=== PATIENT | female | born 1985 | race Caucasian/White ===

== ENCOUNTER 2019-06-25 12:43 | Emergency (ER) | payer BC ==
[2019-06-25 14:17] LABS: Urine Amorphous Sediment 1+ /HPF (NONE SEEN); Urine Bacteria <20 /HPF (<20); Urine Mucus 1+ /HPF (NONE SEEN); Urine RBC <5 /HPF (NONE SEEN)
[2019-06-25 14:18] LABS: Urine Specific Gravity >1.030 (1.005-1.030)
[2019-06-25 14:18] LABS: Urine Blood NEGATIVE (NEG); Urine Glucose NEGATIVE (NEG); Urine Protein NEGATIVE (NEG); Urine Specific Gravity >1.030 (1.005-1.030)
[2019-06-25 14:20] LABS: Urine Culture Reflex Order NOT NEEDED
--- NOTE | 2019-06-25 14:51 | EDPHYS ---
Physician Documentation [facility] Name: Ruby Ellis Age: 33 yrs Sex: Female : 1985 Arrival Date: 06/25/2019 Time: 12:46 Bed 24 Private MD: ED Physician Jatin Ceballos HPI: 06/24 14:47 This 33 yrs old Female presents to ER via Ambulatory with complaints of UTI. jr8 14:47 The patient presents with urinary symptoms, dysuria, frequency. Onset: The jr8 symptoms/episode began/occurred gradually, 1 week(s) ago. Modifying factors: The symptoms are alleviated by nothing, the symptoms are aggravated by nothing. Associated signs and symptoms: Pertinent positives: fever, low back pain. Severity of symptoms: At their worst the symptoms were moderate, in the emergency department the symptoms have improved, mildly. The patient has experienced similar episodes in the past, multiple times. The patient has not recently seen a physician. Patient stated that she has history of interstitial cystitis and UTIs. Stated that she has been on one week of cipro but usually requires two. Has taken first weeks worth from old supply and feeling better but knows she still has infection. Denies any other symptoms . 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 - Social history:: Smoking status: Patient denies any tobacco usage or history of. ROS: 14:47 Eyes: Negative for injury, pain, redness, and discharge, ENT: Negative for injury, jr8 pain, and discharge, Neck: Negative for injury, pain, and swelling, Cardiovascular: Negative for chest pain, palpitations, and edema, Respiratory: Negative for shortness of breath, cough, wheezing, and pleuritic chest pain, Abdomen/GI: Negative for abdominal pain, nausea, vomiting, diarrhea, and constipation, Back: Negative for injury and pain, MS/Extremity: Negative for injury and deformity, Skin: Negative for injury, rash, and discoloration, Neuro: Negative for headache, weakness, numbness, tingling, and seizure. 14:47 Constitutional: Positive for fever. 14:47 : Positive for urinary symptoms, burning with urination, Negative for vaginal bleeding, vaginal discharge, vaginal itching. Exam: 14:47 Eyes: Pupils equal round and reactive to light, extra-ocular motions intact. Lids and jr8 lashes normal. Conjunctiva and sclera are non-icteric and not injected. Cornea within normal limits. Periorbital areas with no swelling, redness, or edema. ENT: Nares patent. No nasal discharge, no septal abnormalities noted. Tympanic membranes are normal and external auditory canals are clear. Oropharynx with no redness, swelling, or masses, exudates, or evidence of obstruction, uvula midline. Mucous membranes moist. Neck: Trachea midline, no thyromegaly or masses palpated, and no cervical lymphadenopathy. Supple, full range of motion without nuchal rigidity, or vertebral point tenderness. No Meningismus. Cardiovascular: Regular rate and rhythm with a normal S1 and S2. No gallops, murmurs, or rubs. Normal PMI, no JVD. No pulse deficits. Respiratory: Lungs have equal breath sounds bilaterally, clear to auscultation and percussion. No rales, rhonchi or wheezes noted. No increased work of breathing, no retractions or nasal flaring. Abdomen/GI: Soft, non-tender, with normal bowel sounds. No distension or tympany. No guarding or rebound. No evidence of tenderness throughout. Back: No spinal tenderness. No costovertebral tenderness. Full range of motion. Skin: Warm, dry with normal turgor. Normal color with no rashes, no lesions, and no evidence of cellulitis. MS/ Extremity: Pulses equal, no cyanosis. Neurovascular intact. Full, normal range of motion. Neuro: Awake and alert, GCS 15, oriented to person, place, time, and situation. Cranial nerves II-XII grossly intact. Motor strength 5/5 in all extremities. Sensory grossly intact. Cerebellar exam normal. Normal gait. Vital Signs: 12:59 BP 120 / 68; Pulse 83; Resp 16; Temp 98.4; Pulse Ox 97% on R/A; Weight 91.85 kg; iw 14:28 BP 110 / 71; Pulse 81; Resp 18 S; Temp 98.1(O); Pulse Ox 100% on R/A; ca1 MDM: 14:07 Patient medically screened. jr8 14:47 Data reviewed: vital signs, nurses notes, lab test result(s), and as a result, I will jr8 discharge patient. Data interpreted: Pulse oximetry: on room air is 100 %. Interpretation: normal. Counseling: I had a detailed discussion with the patient and/or guardian regarding: the historical points, exam findings, and any diagnostic results supporting the discharge/admit diagnosis, lab results, the need for outpatient follow up, a family practitioner, a urologist, to return to the emergency department if symptoms worsen or persist or if there are any questions or concerns that arise at home. 06/24 13:18 Order name: Urine Culture iw 06/24 13:18 Order name: Urine Microscopic Only; Complete Time: 14:33 iw 06/24 13:22 Order name: Urine Dipstick--Ancillary (enter results); Complete Time: 14:33 em1 06/24 13:23 Order name: Urine --Ancillary (enter results); Complete Time: 14:33 em1 Administered Medications: No medications were administered Disposition: 06/25 01:25 Co-signature as Attending Physician, Jatin Ceballos MD I agree with the assessment and kdr plan of care. Disposition: 06/25/19 14:50 Discharged to Home. Impression: Urinary tract infection, site not specified. - Condition is Stable. - Discharge Instructions: Urinary Tract Infection, Adult. - Prescriptions for Cipro 500 mg Oral Tablet - take 1 tablet by ORAL route every 12 hours for 7 days; 14 tablet. - Medication Reconciliation Form, Thank You Letter, Antibiotic Education, Prescription Opioid Use form. - Follow up: Ruslan Charles MD; When: 1 week; Reason: Recheck today's complaints, Continuance of care, Re-evaluation by your physician. - Problem is new. - Symptoms are unchanged. Signatures: Dispatcher [employer] EDMS Jatin Ceballos MD MD kdr Williams, Irene, RN RN Allen Williamson PA PA jr8 Alondra Mary RN RN ca1 Corrections: (The following items were deleted from the chart) 06/24 15:00 14:50 06/25/2019 14:50 Discharged to Home. Impression: Urinary tract infection, site ca1 not specified. Condition is Stable. Forms are Medication Reconciliation Form, Thank You Letter, Antibiotic Education, Prescription Opioid Use. Follow up: Ruslan Charles; When: 1 week; Reason: Recheck today's complaints, Continuance of care, Re-evaluation by your physician. Problem is new. Symptoms are unchanged. jr8
--- NOTE | 2019-06-25 14:51 | ER ---
Nurse's Notes [facility] Name: Ruby Ellis Age: 33 yrs Sex: Female : 1985 Arrival Date: 06/25/2019 Time: 12:46 Bed 24 Private MD: Diagnosis: Urinary tract infection, site not specified Presentation: 06/24 12:59 Chief complaint: Patient states: bladder pain, sweating, subj fever X 1 week, has been iw on abx (Cipro) for UTI, states the abx was left over from a previous UTI. Coronavirus screen: Proceed with normal triage. Patient denies a cough. Patient denies shortness of breath or difficulty breathing. Patient denies measured and/or subjective temperature greater than 100.4F prior to today's visit. Patient denies travel on a cruise ship or to a country the [facility] currently lists as an affected area. Patient denies contact with known and/or suspected case of COVID-19. Ebola Screen: Patient negative for fever greater than or equal to 101.5 degrees Fahrenheit, and additional compatible Ebola Virus Disease symptoms Patient denies exposure to infectious person. Patient denies travel to an Ebola-affected area in the 21 days before illness onset. No symptoms or risks identified at this time. Initial Sepsis Screen: Does the patient meet any 2 criteria? No. Patient's initial sepsis screen is negative. Does the patient have a suspected source of infection? No. Patient's initial sepsis screen is negative. Risk Assessment: Do you want to hurt yourself or someone else? Patient reports no desire to harm self or others. Onset of symptoms was June 19, 2019. 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 - Social history:: Smoking status: Patient denies any tobacco usage or history of. Screenin:28 Abuse screen: Denies threats or abuse. Denies injuries from another. Nutritional ca1 screening: No deficits noted. Tuberculosis screening: No symptoms or risk factors identified. Fall Risk None identified. Assessment: 14:28 General: Appears in no apparent distress. comfortable, Behavior is calm, cooperative, ca1 appropriate for age. Pain: Complains of pain in suprapubic area Pain does not radiate. Pain began a week ago. Neuro: Level of Consciousness is awake, alert, obeys commands, Oriented to person, place, time, situation, Appropriate for age. Cardiovascular: Heart tones S1 S2 present Capillary refill < 3 seconds Patient's skin is warm and dry. Respiratory: Airway is patent Respiratory effort is even, unlabored, Respiratory pattern is regular, symmetrical, Breath sounds are clear bilaterally. GI: Abdomen is round non-distended, Bowel sounds present X 4 quads. Abd is soft X 4 quads Abdomen is tender to palpation in suprapubic area Reports nausea, vomiting. : Reports burning with urination, urgency, urinary frequency. EENT: No signs and/or symptoms were reported regarding the EENT system. Derm: Skin is intact, is healthy with good turgor, Skin is pink, warm \T\ dry. Musculoskeletal: Circulation, motion, and sensation intact. Capillary refill < 3 seconds. 14:59 Reassessment: Patient appears in no apparent distress at this time. Patient is alert, ca1 oriented x 3, equal unlabored respirations, skin warm/dry/pink. Vital Signs: 12:59 BP 120 / 68; Pulse 83; Resp 16; Temp 98.4; Pulse Ox 97% on R/A; Weight 91.85 kg; iw 14:28 BP 110 / 71; Pulse 81; Resp 18 S; Temp 98.1(O); Pulse Ox 100% on R/A; ca1 ED Course: 12:46 Patient arrived in ED. ag5 13:02 Triage completed. iw 13:04 Arm band placed on. iw 14:07 Allen Williamson PA is PHCP. jr8 14:07 Jatin Ceballos MD is Attending Physician. jr8 14:11 Alondra Mary RN is Primary Nurse. ca1 14:28 Patient has correct armband on for positive identification. Bed in low position. Call ca1 light in reach. Side rails up X 1. Pulse ox on. NIBP on. Warm blanket given. 14:50 Ruslan Charles MD is Referral Physician. jr8 14:59 No provider procedures requiring assistance completed. Patient did not have IV access ca1 during this emergency room visit. Administered Medications: No medications were administered Outcome: 14:50 Discharge ordered by . jr8 14: Discharged to home ambulatory. ca1 14:59 Condition: stable 14:59 Discharge instructions given to patient, Instructed on discharge instructions, follow up and referral plans. medication usage, Demonstrated understanding of instructions, follow-up care, medications, Prescriptions given X 1. 15:00 Patient left the ED. ca1 Signatures: Sudha Preciado RN RN Allen Lima PA PA 8 Alondra Mary RN RN ca1 Ede Mao 5
[2019-06-26 03:28] VITALS: BP 110/71; TEMP 98.1; O2SAT 100
== END 2019-06-25 15:00 | disposition home or self-care (01) ==
LOC: ER 12:43
DX: N39.0 Urinary tract infection, site not specified (principal); Z88.1 Allergy status to other antibiotic agents
CPT/HCPCS: 81003; 81015; 81025; 87086; 87088; 99283

== ENCOUNTER 2019-12-28 17:56 | Emergency (ER) | payer BC ==
[2019-12-28 19:07] LABS: Hematocrit 42.2 % (36.0-45.0); Lymphocytes % 23.3 % (15.3-44.8)
[2019-12-28 19:10] LABS: Urine Bacteria <20 /HPF (<20); Urine RBC <5 /HPF (NONE SEEN)
[2019-12-28 19:11] LABS: Urine Blood NEGATIVE (NEG); Urine Glucose NEGATIVE (NEG); Urine Protein NEGATIVE (NEG); Urine Specific Gravity 1.025 (1.005-1.030); Urine pH 6.5 (5.0-7.0)
[2019-12-28 19:11] LABS: Urine Culture Reflex Order NOT NEEDED; Urine Mucus 1+ /HPF (NONE SEEN)
[2019-12-28 19:32] LABS: Magnesium 2.5 mg/dL (1.8-2.4); Potassium 4.3 mmol/L (3.5-5.1); Protein, Total 7.1 g/dL (6.4-8.2)
--- NOTE | 2019-12-28 19:37 | EDPHYS ---
Physician Documentation [facility] Name: Ruby Ellis Age: 34 yrs Sex: Female : 1985 Arrival Date: 12/28/2019 Time: 17:58 Bed 16 Private MD: ED Physician Jatin Ceballos HPI: 12/27 19:24 This 34 yrs old Female presents to ER via Ambulatory with complaints of snw Urinary Problem, Feet Swelling. 19:24 The patient presents with urinary symptoms, frequency, urgency, swelling to hands and snw feet. Onset: The symptoms/episode began/occurred gradually, at an unknown time. Modifying factors: The symptoms are alleviated by nothing. Severity of symptoms: At their worst the symptoms were mild. The patient has experienced similar episodes in the past. The patient has not recently seen a physician. told she had interstitial cystitis. 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 - Social history:: Smoking status: Patient/guardian denies using tobacco, Stopped _ months ago 2. ROS: 19:24 Constitutional: Negative for fever, chills, and weight loss, Eyes: Negative for injury, snw pain, redness, and discharge, ENT: Negative for injury, pain, and discharge, Neck: Negative for injury, pain, and swelling, Cardiovascular: Negative for chest pain, palpitations, and edema, Respiratory: Negative for shortness of breath, cough, wheezing, and pleuritic chest pain, Abdomen/GI: Negative for abdominal pain, nausea, vomiting, diarrhea, and constipation, Back: Negative for injury and pain, Skin: Negative for injury, rash, and discoloration, Neuro: Negative for headache, weakness, numbness, tingling, and seizure. 19:24 : Positive for urinary symptoms. 19:24 MS/extremity: Positive for swelling, of the right hand, left hand, right foot and left foot. Exam: 19:23 Constitutional: This is a well developed, well nourished patient who is awake, alert, snw and in no acute distress. Head/Face: Normocephalic, atraumatic. Eyes: Pupils equal round and reactive to light, extra-ocular motions intact. Lids and lashes normal. Conjunctiva and sclera are non-icteric and not injected. Cornea within normal limits. Periorbital areas with no swelling, redness, or edema. ENT: Nares patent. No nasal discharge, no septal abnormalities noted. Tympanic membranes are normal and external auditory canals are clear. Oropharynx with no redness, swelling, or masses, exudates, or evidence of obstruction, uvula midline. Mucous membranes moist. Neck: Trachea midline, no thyromegaly or masses palpated, and no cervical lymphadenopathy. Supple, full range of motion without nuchal rigidity, or vertebral point tenderness. No Meningismus. Chest/axilla: Normal chest wall appearance and motion. Nontender with no deformity. No lesions are appreciated. Cardiovascular: Regular rate and rhythm with a normal S1 and S2. No gallops, murmurs, or rubs. Normal PMI, no JVD. No pulse deficits. Respiratory: Lungs have equal breath sounds bilaterally, clear to auscultation and percussion. No rales, rhonchi or wheezes noted. No increased work of breathing, no retractions or nasal flaring. Abdomen/GI: Soft, non-tender, with normal bowel sounds. No distension or tympany. No guarding or rebound. No evidence of tenderness throughout. Back: No spinal tenderness. No costovertebral tenderness. Full range of motion. Skin: Warm, dry with normal turgor. Normal color with no rashes, no lesions, and no evidence of cellulitis. Neuro: Awake and alert, GCS 15, oriented to person, place, time, and situation. Cranial nerves II-XII grossly intact. Motor strength 5/5 in all extremities. Sensory grossly intact. Cerebellar exam normal. Normal gait. Psych: Awake, alert, with orientation to person, place and time. Behavior, mood, and affect are within normal limits. 19:23 Musculoskeletal/extremity: Extremities: swelling to hands and feet, ROM: no acute changes, Circulation is intact in all extremities. Sensation intact. Vital Signs: 18:25 BP 105 / 63; Pulse 69; Resp 16 S; Temp 97.4(TE); Pulse Ox 99% on R/A; Height 5 ft. 4 ca1 in. (162.56 cm) (R); Pain 0/10; 18:29 Weight 83.19 kg (M); ca1 19:45 BP 105 / 74; Pulse 66; Resp 17; Pulse Ox 98% ; Pain 0/10; bb3 18:29 Body Mass Index 31.48 (83.19 kg, 162.56 cm) ca1 MDM: 19:11 Patient medically screened. snw 19:37 Data reviewed: vital signs, nurses notes. Data interpreted: Pulse oximetry: on room air snw is 99 %. Interpretation: normal. Counseling: I had a detailed discussion with the patient and/or guardian regarding: the historical points, exam findings, and any diagnostic results supporting the discharge/admit diagnosis, lab results, the need for outpatient follow up, for definitive care, to return to the emergency department if symptoms worsen or persist or if there are any questions or concerns that arise at home. Special discussion: Based on the history and exam findings, there is no indication for further emergent testing or inpatient evaluation. I discussed with the patient/guardian the need to see the primary care provider for further evaluation of the symptoms. 12/27 18:19 Order name: Urine Culture snw 12/27 18:19 Order name: Urine Microscopic Only; Complete Time: 19:18 snw 12/27 18:43 Order name: Urine For Protein, Random; Complete Time: 19:04 snw 12/27 18:44 Order name: CBC with Diff; Complete Time: 19:18 snw 12/27 18:44 Order name: Chem 7; Complete Time: 19:35 snw 12/27 18:44 Order name: Magnesium; Complete Time: 19:35 snw 12/27 18:19 Order name: Urine Test (obtain specimen); Complete Time: 18:36 snw 12/27 18:19 Order name: Chest Single View XRAY; Complete Time: 19:54 snw 12/27 18:44 Order name: Osmolality, Serum; Complete Time: 19:54 snw 12/27 18:48 Order name: Urine Dipstick--Ancillary (enter results); Complete Time: 19:18 bd 12/27 18:48 Order name: Urine --Ancillary (enter results); Complete Time: 19:18 bd 12/27 19:21 Order name: Add On-Lab sn 12/27 19:22 Order name: Protein, Total; Complete Time: 19:35 EDMA 12/27 18:19 Order name: Urine Dipstick-Ancillary (obtain specimen); Complete Time: 18:36 snw 12/27 18:52 Order name: IV Start; Complete Time: 19:03 tw2 Administered Medications: 19:44 Drug: Decadron - Dexamethasone 10 mg Route: IVP; Site: left antecubital; bb3 20:06 Follow up: Response: No adverse reaction jd3 Disposition: 12/28 06:57 Co-signature as Attending Physician, Jatin Ceballos MD I agree with the assessment and kdr plan of care. Disposition: 12/28/19 19:36 Discharged to Home. Impression: Proteinuria, unspecified. - Condition is Stable. - Discharge Instructions: Proteinuria, Rehydration, Adult. - Work release form, Medication Reconciliation Form, Thank You Letter, Antibiotic Education, Prescription Opioid Use form. - Follow up: Emergency Department; When: As needed; Reason: Worsening of condition. Follow up: Private Physician; When: 1 week; Reason: Recheck today's complaints, Continuance of care, Re-evaluation by your physician. Signatures: Dispatcher [employer] Jatin Cummings MD MD kdr Stephanie Tobar, PELT SALTER-C PELT SALTER-Csnw Marleny Pretty RN RN tw2 Devan Edmond RN RN jd3 Alondra Mary RN RN ca1 Lorna Jordan bb3 Corrections: (The following items were deleted from the chart) 12/27 18:28 18:23 Social history: Smoking status: Patient denies any tobacco usage or history of. ca1 ca1 20:06 19:36 12/28/2019 19:36 Discharged to Home. Impression: Proteinuria, unspecified. jd3 Condition is Stable. Forms are Medication Reconciliation Form, Thank You Letter, Antibiotic Education, Prescription Opioid Use. Follow up: Emergency Department; When: As needed; Reason: Worsening of condition. Follow up: Private Physician; When: 1 week; Reason: Recheck today's complaints, Continuance of care, Re-evaluation by your physician. snw
--- NOTE | 2019-12-28 19:37 | ER ---
Nurse's Notes [facility] Name: Ruby Ellis Age: 34 yrs Sex: Female : 1985 Arrival Date: 12/28/2019 Time: 17:58 Bed 16 Private MD: Diagnosis: Proteinuria, unspecified Presentation: 12/27 18:23 Chief complaint: Patient states: I was told I have interstitial cystitis. I can tell ca1 when I am having a UTI, this one started 2 days ago. Denies fever. I also have swelling on my feet and hands. Coronavirus screen: Client denies travel out of the [place] in the last 14 days. At this time, the client does not indicate any symptoms associated with coronavirus-19. Ebola Screen: Patient negative for fever greater than or equal to 101.5 degrees Fahrenheit, and additional compatible Ebola Virus Disease symptoms Patient denies exposure to infectious person. Patient denies travel to an Ebola-affected area in the 21 days before illness onset. No symptoms or risks identified at this time. Initial Sepsis Screen: Does the patient meet any 2 criteria? No. Patient's initial sepsis screen is negative. Does the patient have a suspected source of infection? No. Patient's initial sepsis screen is negative. Risk Assessment: Do you want to hurt yourself or someone else? Patient reports no desire to harm self or others. Onset of symptoms was December 28, 2019. 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 - Social history:: Smoking status: Patient/guardian denies using tobacco, Stopped _ months ago 2. Screenin:31 Abuse screen: Denies threats or abuse. Nutritional screening: No deficits noted. tw2 Tuberculosis screening: No symptoms or risk factors identified. Fall Risk None identified. Assessment: 18:30 General: Appears in no apparent distress. Behavior is calm, cooperative, appropriate tw2 for age. Pain:. Neuro: Level of Consciousness is awake, alert, obeys commands, Oriented to person, place, time, situation. Cardiovascular: Heart tones S1 S2 Patient's skin is warm and dry. Cardiovascular: Respiratory: Airway is patent Respiratory effort is even, unlabored, Respiratory pattern is regular, symmetrical, Breath sounds are clear bilaterally. GI: No signs and/or symptoms were reported involving the gastrointestinal system. Abdomen is round non-distended. : Reports burning with urination. EENT: No signs and/or symptoms were reported regarding the EENT system. Derm: No signs and/or symptoms reported regarding the dermatologic system. Derm: Reports increased "swelling in hands and feet". Musculoskeletal: Range of motion: intact in all extremities. 19:45 Reassessment: No changes from previously documented assessment. Patient and/or family bb3 updated on plan of care and expected duration. Pain level reassessed. Patient is alert, oriented x 3, equal unlabored respirations, skin warm/dry/pink. Patient denies pain at this time. Vital Signs: 18:25 BP 105 / 63; Pulse 69; Resp 16 S; Temp 97.4(TE); Pulse Ox 99% on R/A; Height 5 ft. 4 ca1 in. (162.56 cm) (R); Pain 0/10; 18:29 Weight 83.19 kg (M); ca1 19:45 BP 105 / 74; Pulse 66; Resp 17; Pulse Ox 98% ; Pain 0/10; bb3 18:29 Body Mass Index 31.48 (83.19 kg, 162.56 cm) ca1 ED Course: 17:58 Patient arrived in ED. as 18:25 Triage completed. ca1 18:25 Arm band placed on right wrist. ca1 18:30 Marleny Pretty, RN is Primary Nurse. tw2 18:31 Placed in gown. Bed in low position. Pulse ox on. NIBP on. Warm blanket given. tw2 18:38 Urine Microscopic Only Sent. bd 18:38 Urine Culture Sent. bd 18:42 [facility]C [facility]. snw 18:42 Jatin Ceballos MD is Attending Physician. snw 18:57 Chest Single View XRAY In Process Unspecified. EDMS 18:59 Inserted saline lock: 20 gauge in left antecubital area, using aseptic technique. Blood tw2 collected. 19:03 Report given to DICK Rothman. tw2 20:05 No provider procedures requiring assistance completed. IV discontinued, intact, jd3 bleeding controlled, No redness/swelling at site. Pressure dressing applied. Administered Medications: 19:44 Drug: Decadron - Dexamethasone 10 mg Route: IVP; Site: left antecubital; bb3 20:06 Follow up: Response: No adverse reaction jd3 Outcome: 19:36 Discharge ordered by . snw 20:06 Discharged to home ambulatory, with family. jd3 20:06 Condition: stable 20:06 Discharge instructions given to patient, Instructed on discharge instructions, follow up and referral plans. Demonstrated understanding of instructions, follow-up care. 20:06 Patient left the ED. jd3 Signatures: Dispatcher [employer] EDMS Gabi Patel Shelly, BIOMEDICAL ENGINEERING SUPERVISOR-C BIOMEDICAL ENGINEERING SUPERVISOR-Csnw Radha Morales Tara, RN RN tw2 Devan Edmond RN RN jd3 Alondra Mary RN RN ca1 Julian, Lorna bb3 Corrections: (The following items were deleted from the chart) 18:28 18:23 Social history: Smoking status: Patient denies any tobacco usage or history of. ca1 ca1 18:29 18:25 Pulse 69bpm; Resp 16bpm; Spontaneous; Pulse Ox 99% RA; Temp 97.4F Temporal; ca1 Height 5 ft. 4 in. Reported; Pain 0/10; ca1 18:33 18:23 Chief complaint: Patient states: I was told I have interstitial cystitis. I can ca1 tell when I am having a UTI, this one started 2 days ago. Denies fever. ca1
--- NOTE | 2019-12-28 19:42 | RAD REPORT ---
EXAM DESCRIPTION: RAD - Chest Single View - 12/28/2019 6:57 pm CLINICAL HISTORY: SWELLING COMPARISON: None TECHNIQUE: AP portable chest image was obtained 12/28/2019 6:57 pm . FINDINGS: Lungs are clear. Heart and vasculature are normal. No measurable pleural effusion and no p neumothorax. No acute bony abnormality seen. No acute aortic findings suspected. IMPRESSION: No acute cardiopulmonary process.
[2019-12-28] MEDS ORDERED: dexAMETHasone 4 MG/ML VIAL ONE (19:52)
[2019-12-29 03:13] VITALS: TEMP 97.4
[2019-12-29 03:16] VITALS: BP 105/74; O2SAT 98
== END 2019-12-28 20:06 | disposition home or self-care (01) ==
LOC: ER 17:56
DX: R80.9 Proteinuria, unspecified (principal); Z88.1 Allergy status to other antibiotic agents
CPT/HCPCS: 87088; 85025; 87086; 80048; 36415; 83735; 81025; 84155; 83930; 84156; 71045; 96374; 99284; J1100; 81003; 81015

== ENCOUNTER → 2020-03-26 | Emergency (ER) | payer BC | LOC: ER 23:43 | DX: Z02.9 Encounter for administrative examinations, unspecified (principal) ==

== ENCOUNTER 2020-04-10 07:32 | Emergency (ER) | payer BC ==
[2020-04-10 08:15] LABS: Urine Blood 3+ (NEG); Urine Glucose NEGATIVE (NEG); Urine Protein 1+ (NEG); Urine Specific Gravity >1.030 (1.005-1.030); Urine pH 5.5 (5.0-7.0)
--- NOTE | 2020-04-10 08:16 | EDPHYS ---
Physician Documentation [facility] Name: Ruby Ellis Age: 34 yrs Sex: Female : 1985 Arrival Date: 04/10/2020 Time: 07:35 Bed 20 Private MD: Noe Stock E ED Physician Francisco Lugo HPI: 04/10 08:11 This 34 yrs old Female presents to ER via Ambulatory with complaints of rn Vaginal Pain, UTI. 08:11 The patient presents with urinary symptoms, dysuria, frequency. Onset: The rn symptoms/episode began/occurred 2 week(s) ago. Modifying factors: The symptoms are alleviated by nothing, the symptoms are aggravated by urinating. Associated signs and symptoms: Pertinent positives: dysuria, Pertinent negatives: fever, hematuria, vaginal bleeding, vaginal discharge. Severity of symptoms: At their worst the symptoms were mild, in the emergency department the symptoms are unchanged. The patient has experienced similar episodes in the past. The patient has not recently seen a physician. Reports 2 weeks of dysuria and urinary frequency, hx of frequent UTIs, similar symptoms as past, also with mild vaginal itching, no fever. Improved with AZO. No abd pain. Appetite ok. . 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 - Social history:: Smoking status: Patient/guardian denies using tobacco, Stopped _ months ago 2. - Family history:: not pertinent. - Hospitalizations: : No recent hospitalization is reported. ROS: 08:11 Constitutional: Negative for fever, chills, and weight loss, Eyes: Negative for injury, rn pain, redness, and discharge, Cardiovascular: Negative for chest pain, palpitations, and edema, Respiratory: Negative for shortness of breath, cough, wheezing, and pleuritic chest pain, Abdomen/GI: Negative for abdominal pain, nausea, vomiting, diarrhea, and constipation, Back: Negative for injury and pain, : + dysuria and vaginal itching MS/Extremity: Negative for injury and deformity, Skin: Negative for injury, rash, and discoloration, Neuro: Negative for headache, weakness, numbness, tingling, and seizure. Exam: 08:11 Constitutional: This is a well developed, well nourished patient who is awake, alert, rn and in no acute distress. Cardiovascular: Regular rate and rhythm. No pulse deficits. Respiratory: No increased work of breathing, no retractions or nasal flaring. Abdomen/GI: soft, non-tender Back: No spinal tenderness. No costovertebral tenderness. Full range of motion. Skin: Warm, dry with normal turgor. Normal color with no rashes, no lesions, and no evidence of cellulitis. MS/ Extremity: Pulses equal, no cyanosis. Neurovascular intact. Full, normal range of motion. Equal circumference. Neuro: Awake and alert, GCS 15, oriented to person, place, time, and situation. Cranial nerves II-XII grossly intact. Motor strength 5/5 in all extremities. Sensory grossly intact. Cerebellar exam normal. Normal gait. Vital Signs: 07:43 BP 106 / 58; Pulse 97; Resp 16; Temp 98.2; Pulse Ox 100% on R/A; Weight 90.72 kg; Pain iw 0/10; MDM: 07:46 Patient medically screened. rn 08:11 Differential diagnosis: urinary tract infection, vaginosis. Data reviewed: vital signs, rn nurses notes, lab test result(s), urinalysis, and as a result, I will discharge patient. Counseling: I had a detailed discussion with the patient and/or guardian regarding: the historical points, exam findings, and any diagnostic results supporting the discharge/admit diagnosis, lab results, the need for outpatient follow up, to return to the emergency department if symptoms worsen or persist or if there are any questions or concerns that arise at home. Special discussion: I discussed with the patient/guardian in detail that at this point there is no indication for admission to the hospital. It is understood, however, that if the symptoms persist or worsen the patient needs to return immediately for re-evaluation. 04/10 07:52 Order name: Urine Microscopic Only rn 04/10 07:52 Order name: Urine Culture rn 04/10 07:52 Order name: Urine Dipstick-Ancillary (obtain specimen); Complete Time: 08:01 rn 04/10 07:52 Order name: Urine Test (obtain specimen); Complete Time: 08:01 rn 04/10 08:02 Order name: Urine Dipstick--Ancillary (enter results) 04/10 08:02 Order name: Urine --Ancillary (enter results) Administered Medications: No medications were administered Disposition: 04/10/20 08:15 Discharged to Home. Impression: Urinary tract infection, site not specified, Vaginitis, vulvitis and vulvovaginitis in diseases classified elsewhere. - Condition is Stable. - Discharge Instructions: Urinary Tract Infection, Adult, Vaginitis. - Prescriptions for Cipro 500 mg Oral Tablet - take 1 tablet by ORAL route every 12 hours for 7 days; 14 tablet. Miconazole 7 2 % Vaginal Cream - insert 1 applicatorful by VAGINAL route At bedtime for 7 days; 45 gram. - Medication Reconciliation Form, Thank You Letter, Antibiotic Education, Prescription Opioid Use form. - Follow up: Private Physician; When: As needed; Reason: Recheck today's complaints, Re-evaluation by your physician. - Problem is new. - Symptoms have improved. Signatures: Dispatcher [employer] EDMS Sudha Preciado RN DICK iw Francisco Lugo MD MD rn Davies, Jonathon, RN RN jd3 Corrections: (The following items were deleted from the chart) 08:25 08:15 04/10/2020 08:15 Discharged to Home. Impression: Urinary tract infection, site jd3 not specified; Vaginitis, vulvitis and vulvovaginitis in diseases classified elsewhere. Condition is Stable. Forms are Medication Reconciliation Form, Thank You Letter, Antibiotic Education, Prescription Opioid Use. Follow up: Private Physician; When: As needed; Reason: Recheck today's complaints, Re-evaluation by your physician. Problem is new. Symptoms have improved. rn
--- NOTE | 2020-04-10 08:16 | ER ---
Nurse's Notes [facility] Name: Ruby Ellis Age: 34 yrs Sex: Female : 1985 Arrival Date: 04/10/2020 Time: 07:35 Bed 20 Private MD: Noe Stock E Diagnosis: Urinary tract infection, site not specified;Vaginitis, vulvitis and vulvovaginitis in diseases classified elsewhere Presentation: 04/10 07:41 Chief complaint: Patient states: two weeks has been having burning and itching and iw urinary pain, now when she urinates her bladder is stephanie and doesn't fully empty, has hx of interstitial cystitis. Coronavirus screen: At this time, the client does not indicate any symptoms associated with coronavirus-19. Ebola Screen: Patient negative for fever greater than or equal to 101.5 degrees Fahrenheit, and additional compatible Ebola Virus Disease symptoms Patient denies exposure to infectious person. Patient denies travel to an Ebola-affected area in the 21 days before illness onset. No symptoms or risks identified at this time. Initial Sepsis Screen: Does the patient meet any 2 criteria? No. Patient's initial sepsis screen is negative. Does the patient have a suspected source of infection? No. Patient's initial sepsis screen is negative. Risk Assessment: Do you want to hurt yourself or someone else? Patient reports no desire to harm self or others. Onset of symptoms was March 25, 2020. 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 - Social history:: Smoking status: Patient/guardian denies using tobacco, Stopped _ months ago 2. - Family history:: not pertinent. - Hospitalizations: : No recent hospitalization is reported. Screenin:16 Abuse screen: Denies threats or abuse. Nutritional screening: No deficits noted. jd3 Tuberculosis screening: No symptoms or risk factors identified. Fall Risk None identified. Assessment: 08:14 General: Appears in no apparent distress. comfortable, Behavior is calm, cooperative, jd3 appropriate for age. Pain: Complains of pain in groin. Neuro: Level of Consciousness is awake, alert, obeys commands, Oriented to person, place, time, situation. Cardiovascular: Capillary refill Patient's skin is warm and dry. Respiratory: Airway is patent Respiratory effort is even, unlabored, Respiratory pattern is regular, symmetrical, Denies cough, shortness of breath. GI: No signs and/or symptoms were reported involving the gastrointestinal system. : Reports burning with urination, urinary frequency. EENT: No signs and/or symptoms were reported regarding the EENT system. Derm: Skin is intact, Skin is dry, Skin is normal, Skin temperature is warm. Musculoskeletal: Circulation, motion, and sensation intact. Range of motion: intact in all extremities. 08:24 Reassessment: Patient appears in no apparent distress at this time. Patient and/or jd3 family updated on plan of care and expected duration. Pain level reassessed. Patient is alert, oriented x 3, equal unlabored respirations, skin warm/dry/pink. Vital Signs: 07:43 BP 106 / 58; Pulse 97; Resp 16; Temp 98.2; Pulse Ox 100% on R/A; Weight 90.72 kg; Pain iw 0/10; ED Course: 07:35 Patient arrived in ED. ag5 07:35 Noe Stock MD is Private Physician. ag5 07:46 Francisco Lugo MD is Attending Physician. rn 07:47 Triage completed. iw 07:52 Devan Edmond RN is Primary Nurse. jd3 08:14 Arm band placed on. jd3 08:16 Patient has correct armband on for positive identification. Bed in low position. Call jd3 light in reach. Side rails up X 1. Pulse ox on. NIBP on. 08:24 No provider procedures requiring assistance completed. Patient did not have IV access jd3 during this emergency room visit. Administered Medications: No medications were administered Outcome: 08:15 Discharge ordered by . rn 08:24 Discharged to home ambulatory. jd3 08:24 Condition: stable 08:24 Discharge instructions given to patient, Instructed on discharge instructions, follow up and referral plans. medication usage, Demonstrated understanding of instructions, follow-up care, medications. 08:25 Patient left the ED. jd3 Signatures: Sudha Preciado RN RN iw Nieto, Roman, MD MD rn Davies, Jonathon, RN RN jd3 Gaskin, Ajare ag5
[2020-04-10 08:18] LABS: Urine Bacteria 20-50 /HPF (<20); Urine RBC >50 /HPF (NONE SEEN)
[2020-04-10 08:29] VITALS: BP 106/58; TEMP 98.2; O2SAT 100
== END 2020-04-10 08:25 | disposition home or self-care (01) ==
LOC: ER 07:32
DX: N39.0 Urinary tract infection, site not specified (principal); N77.1 Vaginitis, vulvitis and vulvovaginitis in diseases classified elsewhere; Z88.1 Allergy status to other antibiotic agents
CPT/HCPCS: 81003; 81015; 81025; 87086; 87088; 99283

== ENCOUNTER 2021-08-02 23:09 | Emergency (ER) | payer BC ==
--- NOTE | 2021-08-03 01:28 | ER ---
Nurse's Notes [facility] Name: Ruby Ledbetter Age: 36 yrs Sex: Female : 1985 Arrival Date: 08/02/2021 Time: 23:13 Bed 9 Private MD: Diagnosis: Idiopathic urticaria;Urticaria, unspecified Presentation: 08/02 23:44 Chief complaint: Patient states: "I have a rash on my legs and stomach since July 17. vc1 I had a yeast and they gave me Cipro, Diflucin. It didn't heal up so they gave me lamisil and I have already went through 3 tubes. It is itching really bad.". Coronavirus screen: Vaccine status: Patient reports being unvaccinated. At this time, the client does not indicate any symptoms associated with coronavirus-19. Ebola Screen: No symptoms or risks identified at this time. Initial Sepsis Screen: Does the patient meet any 2 criteria? No. Patient's initial sepsis screen is negative. Does the patient have a suspected source of infection? No. Patient's initial sepsis screen is negative. Risk Assessment: Do you want to hurt yourself or someone else? Patient reports no desire to harm self or others. Onset of symptoms is unknown. 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 - Social history:: Smoking status: Patient denies any tobacco usage or history of. - Family history:: not pertinent. Vital Signs: 23:44 BP 134 / 86; Pulse 85; Resp 18; Temp 98.4; Pulse Ox 100% ; Weight 104.78 kg; Height 5 vc1 ft. 4 in. (162.56 cm); Pain 0/10; 08/03 01:41 BP 128 / 84; Pulse 81; Resp 16; Temp 98.3; Pulse Ox 98% ; ds4 08/02 23:44 Body Mass Index 39.65 (104.78 kg, 162.56 cm) vc1 ED Course: 08/02 23:13 Patient arrived in ED. bp1 23:50 Triage completed. vc1 23:50 Arm band placed on right wrist. vc1 23:56 Ángel Shaikh MD is Attending Physician. yara Administered Medications: 08/03 01:53 Drug: Benadryl (diphenhydrAMINE) 50 mg Route: PO; lp1 01:53 Drug: Pepcid (famotidine) 40 mg Route: PO; lp1 01:53 Drug: predniSONE 60 mg Route: PO; lp1 Outcome: 01:27 Discharge ordered by . [facility] 02:05 Patient left the ED. lp1 Signatures: Ángel Shaikh MD MD cha Pena, Laura, RN RN lp1 Iggy Cheek ds4 Starr Coon [facility] Mariela Navarro, RN RN vc1
--- NOTE | 2021-08-03 01:28 | EDPHYS ---
Physician Documentation [facility] Name: Ruby Ledbetter Age: 36 yrs Sex: Female : 1985 Arrival Date: 08/02/2021 Time: 23:13 Bed 9 Private MD: DEEPTHI Physician Ángel Shaikh HPI: 08/03 01:22 This 36 yrs old Female presents to ER via Ambulatory with complaints of Rash. yara 01:22 The patient's rash thought to be caused by Dermatitis. The rash is located on the body yara diffusely. The rash can be described as erythematous. Onset: The symptoms/episode began/occurred 3 day(s) ago. Associated signs and symptoms: Pertinent positives: burning sensation. Severity of symptoms: At their worst the symptoms were mild moderate in the emergency department the symptoms are unchanged. Treatment given at home: OTC lotion/cream. The patient has not experienced similar symptoms in the past. [employer]: 08/02 23:50 LMP N/A - tubal ligation vc1 Historical: - Allergies: 23:50 Macrobid; vc1 - PMHx: 23:50 acid reflux; interstitial cystitis; vc1 - Immunization history:: Adult Immunizations up to date, Client reports having NOT received the Covid vaccine. - Social history:: Smoking status: Patient denies any tobacco usage or history of. - Family history:: not pertinent. ROS: 08/03 01:22 Constitutional: Negative for fever, chills, and weight loss, Eyes: Negative for injury, yara pain, redness, and discharge, ENT: Negative for injury, pain, and discharge, Neck: Negative for injury, pain, and swelling, Cardiovascular: Negative for chest pain, palpitations, and edema, Respiratory: Negative for shortness of breath, cough, wheezing, and pleuritic chest pain, Abdomen/GI: Negative for abdominal pain, nausea, vomiting, diarrhea, and constipation, Back: Negative for injury and pain, : Negative for injury, bleeding, discharge, and swelling, MS/Extremity: Negative for injury and deformity, Neuro: Negative for headache, weakness, numbness, tingling, and seizure, Psych: Negative for depression, anxiety, suicide ideation, homicidal ideation, and hallucinations, Allergy/Immunology: Negative for hives, rash, and allergies, Endocrine: Negative for neck swelling, polydipsia, polyuria, polyphagia, and marked weight changes, Hematologic/Lymphatic: Negative for swollen nodes, abnormal bleeding, and unusual bruising. Skin: Positive for rash, diffusely. Exam: 01:22 Constitutional: This is a well developed, well nourished patient who is awake, alert, yara and in no acute distress. Head/Face: Normocephalic, atraumatic. Eyes: Pupils equal round and reactive to light, extra-ocular motions intact. Lids and lashes normal. Conjunctiva and sclera are non-icteric and not injected. Cornea within normal limits. Periorbital areas with no swelling, redness, or edema. ENT: Nares patent. No nasal discharge, no septal abnormalities noted. Tympanic membranes are normal and external auditory canals are clear. Oropharynx with no redness, swelling, or masses, exudates, or evidence of obstruction, uvula midline. Mucous membranes moist. Neck: Trachea midline, no thyromegaly or masses palpated, and no cervical lymphadenopathy. Supple, full range of motion without nuchal rigidity, or vertebral point tenderness. No Meningismus. Chest/axilla: Normal chest wall appearance and motion. Nontender with no deformity. No lesions are appreciated. Cardiovascular: Regular rate and rhythm with a normal S1 and S2. No gallops, murmurs, or rubs. Normal PMI, no JVD. No pulse deficits. Respiratory: Lungs have equal breath sounds bilaterally, clear to auscultation and percussion. No rales, rhonchi or wheezes noted. No increased work of breathing, no retractions or nasal flaring. Abdomen/GI: Soft, non-tender, with normal bowel sounds. No distension or tympany. No guarding or rebound. No evidence of tenderness throughout. Back: No spinal tenderness. No costovertebral tenderness. Full range of motion. Female : Normal external genitalia. MS/ Extremity: Pulses equal, no cyanosis. Neurovascular intact. Full, normal range of motion. Neuro: Awake and alert, GCS 15, oriented to person, place, time, and situation. Cranial nerves II-XII grossly intact. Motor strength 5/5 in all extremities. Sensory grossly intact. Cerebellar exam normal. Normal gait. Psych: Awake, alert, with orientation to person, place and time. Behavior, mood, and affect are within normal limits. :22 Skin: urticaria. Vital Signs: 08/02 23:44 BP 134 / 86; Pulse 85; Resp 18; Temp 98.4; Pulse Ox 100% ; Weight 104.78 kg; Height 5 vc1 ft. 4 in. (162.56 cm); Pain 0/10; 08/03 01:41 BP 128 / 84; Pulse 81; Resp 16; Temp 98.3; Pulse Ox 98% ; ds4 08/02 23:44 Body Mass Index 39.65 (104.78 kg, 162.56 cm) vc1 MDM: 08/02 23:56 Patient medically screened. yara 08/03 01:25 Differential diagnosis: allergic reaction. Data reviewed: vital signs, nurses notes. [facility] Data interpreted: alarm security or surveillance monitor: rate is 85 beats/min, rhythm is regular, Pulse oximetry: on room air is 100 %. Counseling: I had a detailed discussion with the patient and/or guardian regarding: the historical points, exam findings, and any diagnostic results supporting the discharge/admit diagnosis, lab results, the need for outpatient follow up, for definitive care, a family practitioner. Administered Medications: 01:53 Drug: Benadryl (diphenhydrAMINE) 50 mg Route: PO; lp1 01:53 Drug: Pepcid (famotidine) 40 mg Route: PO; lp1 01:53 Drug: predniSONE 60 mg Route: PO; lp1 Disposition Summary: 08/03/21 01:27 Discharge Ordered Location: Home yara Problem: new yara Symptoms: have improved yara Condition: Stable yara Diagnosis - Idiopathic urticaria yara - Urticaria, unspecified yara Followup: yara - With: Private Physician - When: 2 - 3 days - Reason: Recheck today's complaints, Continuance of care, Re-evaluation by your physician Discharge Instructions: - Discharge Summary Sheet yara - Allergies, Adult yara - Hives yara - Rash, Adult yara - Rash, Adult, [id number] yara - Hives, [id number] yara - Allergies, Adult, [id number] yara Forms: - Medication Reconciliation Form yara - Thank You Letter yara - Antibiotic Education yara - Prescription Opioid Use yara Prescriptions: - Benadryl 25 mg Oral Capsule - take 1 capsule by ORAL route every 6 hours As needed; 30 tablet; Refills: 0, yara Product Selection Permitted - Pepcid 20 mg Oral Tablet - take 1 tablet by ORAL route every 12 hours for 10 days; 20 tablet; Refills: 0, yara Product Selection Permitted - Prednisone 20 mg Oral Tablet - take 2 tablets by ORAL route once daily for 5 days; 10 tablet; Refills: 0, yara Product Selection Permitted Signatures: Ángel Shaikh, Cierra Calderon MD, cha RN RN lp1 Mariela Navarro RN RN vc1
[2021-08-03] MEDS ORDERED: predniSONE 20 MG TAB ONE (01:39)
[2021-08-03] MEDS ORDERED: DIPHENHYDRAMINE 25 MG TAB/CAP ONE (01:39)
[2021-08-03] MEDS ORDERED: FAMOTIDINE 20 MG TAB ONE (01:40)
[2021-08-03 02:48] VITALS: BP 128/84; TEMP 98.3; O2SAT 98
== END 2021-08-03 02:05 | disposition home or self-care (01) ==
LOC: ER 23:09
DX: L50.1 Idiopathic urticaria (principal); L50.9 Urticaria, unspecified; Z88.3 Allergy status to other anti-infective agents
CPT/HCPCS: 99283; J7512